=== PATIENT | male | born 1975 | race Caucasian/White ===

== ENCOUNTER 2024-12-06 10:12 | Emergency (ER) | payer SELFPAY ==
[2024-12-06 10:15] VITALS: BP 132/118; BMI 22.1
[2024-12-06] MEDS: DECADRON 10 MG IV (10:22)
[2024-12-06] MEDS: DUONEB 3 ML INH ×2 (10:22→10:51)
[2024-12-06 10:36] LABS: % Eosinophils 1.4 % (0-6); % Immature Granulocytes 0.3 % (0-0.5); % Lymphocytes 26.6 % (20.5-51.1); % Neutrophils 64.7 % (42.2-75.2); Absolute Basophils 0.1 10^3/uL (0-0.2); Absolute Eosinophils 0.2 10^3/uL (0-0.7); Absolute Lymphocytes 2.8 10^3/uL (1.2-3.4); Absolute Monocytes 0.6 10^3/uL (0.1-0.6); Absolute Neutrophils 6.8 10^3/uL (1.4-6.5); Hematocrit 45.7 % (39.0-52.0); Hemoglobin 16.4 g/dL (13.0-18.0); Mean Corp Hgb Conc. 35.9 g/dL (33.0-37.0); Mean Corpuscular Hgb 31.2 pg (27.0-31.0); Mean Corpuscular Volume 86.9 fL (80.0-94.0); Mean Platelet Volume 9.7 fL (7.4-10.4); Nucleated Red Blood Cells % 0 % (-); Platelet Count 427 10^3/uL (130-400); Red Blood Cell Count 5.26 10^6/uL (4.70-6.10); Red Cell Dist. Width 13.5 % (11.5-14.5); White Blood Cell Count 10.5 10^3/uL (4.8-10.8)
[2024-12-06 10:59] LABS: ALT (SGPT) 28 U/L (0-50); AST (SGOT) 25 U/L (17-59); Albumin 5.4 g/dl (3.5-5.0); Alkaline Phosphatase 74 U/L (38-126); Blood Urea Nitrogen 16 mg/dl (9-20); Carbon Dioxide 16 mmol/L (22-30); Chloride 109 mmol/L (98-107); Estimated Creatinine Clearance 67 ml/min; Glucose 162 mg/dl (70-99); Potassium 4.6 mmol/L (3.5-5.1); Sodium 144 mmol/L (135-145); Total Bilirubin 1.1 mg/dl (0.2-1.3); Total Protein 8.1 g/dl (6.3-8.2); eGFR > 60.00
[2024-12-06 11:00] VITALS: BP 129/82
[2024-12-06 11:08] LABS: D-Dimer 0.34 ug/mlFEU (0.00-0.50); Troponin I < 0.012 ng/ml
[2024-12-06 12:00] VITALS: BP 149/109
[2024-12-06 13:00] VITALS: BP 128/94
--- NOTE | 2024-12-06 13:53 | ED.GENMED ---
History of Present Illness
General
Chief Complaint: Chest Pain
Source: patient and ambulance crew
Exam Limitations: none
Time Seen by Provider: 12/06/24 10:17
Nursing documentation reviewed up to this point in time: agreed with
History of Present Illness
History of Present Illness:
Note:
CHIEF COMPLAINT(S)
Chest tightness and anxiety.
HISTORY OF PRESENT ILLNESS
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 The chest tightness started this morning, described as a constant sensation located in the upper chest and back,
particularly around the shoulder region. He has experienced similar discomfort his entire life. The patient also reports feeling very anxious and likens the sensation to not being able to 'catch up' after running. Additionally, the patient mentioned
dealing with poison oralia exposure earlier.
PHYSICAL EXAM
- Cardiovascular: S1 and S2 auscultated; tachycardia present; no murmurs, S3, or S4 detected.
- Pulmonary: Moderate wheezing noted; patient exhibited signs of stress.
- Abdomen: Soft, non-tender, non-distended.
- Extremities: No edema; normal pulses.
- Neurologic: No deficits observed.
PLAN
- Administer a breathing treatment.
- Provide a steroid.
- Conduct blood tests and a chest X-ray.
DIFFERENTIAL DIAGNOSIS
The Differential Diagnosis includes, in no particular order and is not limited to:
1. Anxiety disorder
2. Chest wall pain
3. Acute coronary syndrome
4. Pulmonary embolism
5. Aortic dissection
6. Pericarditis
7. Pneumonia
8. Pneumothorax
9. Gastroesophageal reflux disease (GERD)
10. Myocarditis
EKG
My independent EKG interpretation is:
- Rhythm: Sinus tachycardia
- Heart rate: 132 beats per minute
- AK interval: Normal
- QRS duration: Normal
- QTc interval: Normal
- [place]: Not specified
- Abnormalities: Non-specific ST and T wave abnormalities
- No old EKG for comparison
CARE-UPDATE
12/06/24 - 14:04
Patient reports feeling improved after receiving IP decadron and multiple doses of duo-nebs. Cardiovascular and pulmonary concerns such as dissection, ACS, and pulmonary embolism are unlikely, as supported by negative d-dimer and troponin tests.
Patient associates hot showers with symptom relief. Advised cessation of daily marijuana use due to its potential contribution to symptoms; patient acknowledges use is for anxiety. Discharge plan includes prescriptions for albuterol and a five-day
course of prednisone.
Disposition:
SUMMARY OF ENCOUNTER
The patient presented with chest tightness and anxiety.
DISPOSITION
The patient was discharged home in good condition.
ASSESSMENT
Asthma exacerbation, chest pain, cannabis use.
EMERGENCY TREATMENTS ADMINISTERED
The patient received ivdecadron and multiple doses of duo-nebs.
PLAN
Prescriptions for albuterol and a five-day course of prednisone were provided.
MEDICATION RECONCILIATION
Albuterol prescribed, prednisone prescribed for five days.
MEDICAL DECISION MAKING
1. Number & Complexity of Problems: Acute asthma exacerbation, chest tightness possibly influenced by cannabis use. Differential diagnoses considered included anxiety disorder, chest wall pain, acute coronary syndrome, and more.
2. Data Reviewed: Labs, including d-dimer and troponin tests, which were negative.
3. Risk: Consideration of admission/observation was made due to complexity/risk. However, outpatient management is appropriate based on reassuring work-up, stable vitals, symptom control, and follow-up reliability.
PATHOLOGIES TO CONSIDER
- Acute coronary syndrome
- Pulmonary embolism
- Aortic dissection
Phy Exam
Physical Exam
Physical Exam:
.
Scores
Heart Score for Chest Pain Patients
STEMI patient?: No
History: Slightly or Non-Suspicious
ECG: Normal
Age: >45 - <65 years
Risk Factors: 1 or 2 Risk Factors
Troponin: </= Normal Limit
Heart Score for Chest Pain Patients: 2
Heart Score Risk: 2.5% MACE over next 6 weeks
Course
Orders/Labs/Results
Orders:
Orders
12/06/24 10:14
Electrocardiogram (*1) Urgent
Reason for Study: Chest Pain
EKG- Treatment ONCE
12/06/24 10:18
Dexamethasone Sod Phosphate [Decadron] 10 mg IV NOW STA
Ipratropium/Albuterol Sulfate [Duoneb] 3 ml INH R NOW STA
CR Chest Portable - 1 View Urgent
Comment:
Reason For Exam: short of breath chest pain
Reason Study Needs to be Portable: Patient Unstable
12/06/24 10:19
Dexamethasone Sod Phosphate [Decadron] 20 mg .ROUTE .STK-MED ONE
Ipratropium/Albuterol Sulfate [Duoneb] 3 ml .ROUTE .STK-MED ONE
12/06/24 10:24
CMP [Comprehensive Metabolic Panel] Urgent
Complete Blood Count/With Diff Urgent
D-Dimer Urgent
Troponin I Urgent
12/06/24 10:45
Ipratropium/Albuterol Sulfate [Duoneb] 3 ml INH R NOW STA
Abnormal Lab Results
12/06/24
10:24
MCH 31.2 H pg
(27.0-31.0)
Plt Count 427 H 10^3/uL
(130-400)
Absolute Neuts (auto) 6.8 H 10^3/uL
(1.4-6.5)
Chloride 109 H mmol/L
(98-107)
Carbon Dioxide 16 L mmol/L
(22-30)
Glucose 162 H mg/dl
(70-99)
Calcium 12.0 H mg/dl
(8.4-10.2)
Albumin 5.4 H g/dl
(3.5-5.0)
12/06/24 10:24
12/06/24 10:24
Vital Signs
Initial and Last Documented VS:
Initial Vital Signs
Temp Pulse Resp BP Pulse Ox
97.6 F 133 23 132/118 98
12/06/24 10:15 12/06/24 10:15 12/06/24 10:15 12/06/24 10:15 12/06/24 10:15
Last Documented Vital Signs
Temp Pulse Resp BP Pulse Ox
97.6 F 71 11 128/94 99
12/06/24 10:15 12/06/24 13:15 12/06/24 13:15 12/06/24 13:00 12/06/24 13:56
*Pulse Oximetry
SaO2: 99
Nasal Cannula flow liters per minute: 2
Patient hypoxic: no
*Critical Care Note
Total Time (30-74mins, 75-104mins- exclusive of procedures): 35
comment:
Critical care statement: A total of 35 minutes of critical care time was provided for this patient. This includes management of unstable vital signs, evaluation of the patient at bedside, reviewing the patient's pertinent medical records, discussion
with consultants, review of old EKGs and review of pertinent medical records. This time with separate from time utilized to perform the aforementioned documented procedures
ED Attending Note
-
Portions of this chart may have been created with voice recognition software.� Occasional wrong word or��sound alike� substitutions may have occurred due to the inherent limitations of voice recognition software.
Discharge Plan
Departure
Patient Disposition: Home (Routine Discharge)
Date of Disposition: 12/06/24
Time of Disposition: 13:53
Patient with high blood pressure during this ER visit?: Yes
Condition: Good
Discharge Problem:
Asthma exacerbation, Chest pain
Instructions: Chest Pain PCP Follow Up, BLOOD PRESSURE
Prescriptions:
New
prednisone 50 mg tablet
50 mg PO DAILY Qty: 5 0RF
albuterol sulfate [Ventolin HFA] 90 mcg/actuation HFA aerosol inhaler
2 puff inhalation Q4H PRN (Reason: shortness of breath or wheezing) Qty: 8.5 0RF
Referrals:
NONE,* [Family Provider, Internal Medicine]
Activity Restrictions/Additional Instructions:
Follow up with primary care in 3-5 days. Return for any concerns. Marijuana has contributed to your symptoms. I advise you discontinue it's use.
Interventions
Interventions:
*Risk Screen - Suicide Last Done: 12/06/24 10:15
*General Assessment Last Done: 12/06/24 10:15
*Neglect/Abuse Screening Last Done: 12/06/24 10:15
*ED- Fall Risk Assessment Last Done: 12/06/24 10:15
*ED COVID-19 Vaccine History Last Done: 12/06/24 10:15
ED- Cardiac Assessment Last Done: 12/06/24 10:15
Discharge Date and Time
Print Language: DANISH
== END 2024-12-06 14:01 | disposition home or self-care (01) ==
LOC: EMR 10:12
PROVIDERS: EMERGENCY PHYSICIAN Emergency Medicine
DX: J45.901 Unspecified asthma with (acute) exacerbation (principal); R07.89 Other chest pain; F41.9 Anxiety disorder, unspecified
CPT/HCPCS: 99284; 94640; 96374; 71045; 80053; 84484; 85025; 85379; 93005